=== PATIENT | female | born 1955 | race Caucasian/White ===

== ENCOUNTER → 2017-01-14 | Outpatient (CLI) | payer MEDICARE ==
[2017-01-14 16:28] LABS: Blood Urea Nitrogen 18 mg/dL (7-17); Non-African American GFR(MDRD) >60 (>60 ml/min/1.73 sqM)
== END | disposition home or self-care (01) ==
LOC: LABWHC1 15:51
PROVIDERS: ATTEND Family Medicine
DX: M51.16 Intervertebral disc disorders with radiculopathy, lumbar region (principal)
CPT/HCPCS: 36415; 82565; 84520

== ENCOUNTER → 2017-01-15 | Outpatient (CLI) | payer MEDICARE ==
--- NOTE | 2017-01-15 21:19 | MR ---
EXAMINATION TYPE: MR lumbar spine wo/w con DATE OF EXAM: 01/15/2017 8:05 PM COMPARISON: NONE HISTORY: Severe LBP with pain into right thigh for 3 weeks, hx surgery 7 years ago per patient.. Inte rvertebral discs disc order with radiculopathy per order. TECHNIQUE: Multiplanar, multisequence images of the lumbar spine is performed without and with IV contrast, util izing 10 mL intravenous MultiHance FINDINGS: Sagittal images of the lumbar spine show vertebral body heights and alignment to appear str aightened. There is multilevel disc desiccation mild disc space narrowing above surgical levels at kim mbosacral junction. There is moderate to advanced disc space narrowing L5-S1 level. There is artifact from posterior fusion hardware L5-S1 level noted. Small multilevel posterior disc herniations are se en on sagittal images most prominent at L2-L3 and L4-L5 levels The conus medullaris is normal in posi tion and signal ending at mid L1 vertebral body level. The bone marrow signal intensity is within no rmal limits. No suspicious postcontrast enhancement is seen. Mild multilevel anterior spurring is pre sent. Axial images at the T12-L1 level shows prominence of the exiting nerve root sheaths bilaterally other booth is unremarkable. Axial images at L1-L2 level shows mild broad disc bulge minimally effacing anterior thecal sac, bilat eral neural foramina are patent. Axial images at L2-L3 level shows moderate broad-based posterior disc protrusion effacing anterior th ecal sac and axial image 28 with mild facet degenerative changes and ligamentum flavum hypertrophy ef facing posterior lateral thecal sac. Bilateral neural foramina are patent. Axial images at L3-L4 level show mild broad disc bulge mildly effacing anterior thecal sac. Bilateral neural foramina are patent. Axial images at L4-L5 level show artifact from surgical change. There is mild to moderate broad disc bulge with left paracentral broad-based disc protrusion component effacing anterior thecal sac and ax ial image 15. There is mild right-sided neural foraminal narrowing inferiorly. Left-sided neural fora men is patent. Axial images at L5-S1 level show bilateral laminectomy defects and spinous process resection. Spinal canal is preserved. There is artifact from posterior fusion hardware. Right-sided neural foramina is felt patent. There appears to be encroachment on left-sided neural foramina due to marginal spurring seen best on sagittal image 3. Slightly unusual anterior axis to right kidney is noted.. IMPRESSION: Postsurgical changes lumbosacral junction. There are multilevel degenerative changes in t he lumbar spine as detailed above. No significant finding however is clearly seen to account for anant ent's right-sided radiculopathy type symptoms.
== END | disposition home or self-care (01) ==
LOC: RADMRIMAIN 18:58
PROVIDERS: ATTEND Family Medicine
DX: M47.26 Other spondylosis with radiculopathy, lumbar region (principal); Z98.890 Other specified postprocedural states
CPT/HCPCS: 72158; A9577

== ENCOUNTER → 2017-07-20 | Outpatient (CLI) | payer MEDICARE ==
--- NOTE | 2017-07-20 21:16 | MR ---
EXAMINATION TYPE: MR cervical spine wo con DATE OF EXAM: 07/20/2017 COMPARISON: Prior exam 12/19/2012 HISTORY: Cervical Spondylosis with Radiculopathy, Headaches TECHNIQUE: Multiplanar, multisequence images of the cervical spine were acquired. C2-C3: No evidence for degenerative disc disease. No disc bulge/herniation or protrusion. No Canal stenosis. Foramina are patent bilaterally. C3-C4: No evidence for degenerative disc disease. No disc bulge/herniation or protrusion. No Canal stenosis. Foramina are patent bilaterally. C4-C5: No evidence for degenerative disc disease. No disc bulge/herniation or protrusion. No Canal stenosis. Foramina are patent bilaterally. C5-C6: No evidence for degenerative disc disease. No disc bulge/herniation or protrusion. No Canal stenosis. Foramina are patent bilaterally, some mild foraminal encroachment may be present on the le ft. C6-C7: No evidence for degenerative disc disease. No disc bulge/herniation or protrusion. No Canal stenosis. There may be some mild left-sided greater than right foraminal encroachment may be present as previously reported. C7-T1: No evidence for degenerative disc disease. No disc bulge/herniation or protrusion. No Canal stenosis. Foramina are patent bilaterally. Cervical segments are intact. There is normal alignment. Cervical spinal cord is of normal signal. Craniovertebral junction relationships are within normal limits. Anterior cervical fusion and disce ctomy change again noted at C5-C7. Susceptibility artifact is again noted due to the screws, difficul t to exclude extension of screws into the spinal canal, breach of the posterior cortex of the vertebr al body on the basis of this exam. IMPRESSION: There is not a significant interval change in the appearance of the exam. No significant central sten osis is evident.
== END | disposition home or self-care (01) ==
LOC: RADMRIMAIN 19:01
DX: M47.22 Other spondylosis with radiculopathy, cervical region (principal)
CPT/HCPCS: 72141

== ENCOUNTER → 2018-08-08 | Outpatient (CLI) | payer OTHER, MEDICARE ==
--- NOTE | 2018-08-08 13:55 | ECHOS ---
STRESS ECHOCARDIOGRAM INDICATIONS: Murmur BASELINE HEART RATE: 59 BASELINE BLOOD PRESSURE: 101/80 MAXIMUM HEART RATE: 140 MAXIMUM BLOOD PRESSURE: 146/77 85% MPHR: 134 100% MPHR: 158 METS: 9.1 MAXIMUM STAGE REACHED: 3 TOTAL EXERCISE TIME: 7:30 CLINICAL INFORMATION: Baseline rhythm is a sinus mechanism, rate of 59, normal axis and intervals, poor R- wave progression. Baseline blood pressure 101/80 mmHg. Patient exercised on Silvestre protocol for 7 minutes 30 seconds reaching peak rate of 140 beats per minute which is equal to 89% maximum predicted heart rate. Peak blood pressure 146/77 mmHg. Test was terminated due to fatigue. There was no chest pain. Electrocardiographic monitoring revealed a rate related to right bundle branch block with occasional PVCs. The rate related to bundle branch block resolved in recovery. FINDINGS: Baseline echocardiogram revealed normal function. At peak exercise there was normal wall motion augmentation with no hypokinesis or dyskinesis. CONCLUSION: 1. Average exercise tolerance with occasional premature ventricular contractions and nondiagnostic electrocardiogram stress testing secondary to rate-related right bundle branch block with occasional premature ventricular contractions. 2. Normal stress echocardiogram with no evidence of stress-induced ischemia. MMODL / IJN: [id number] /
== END | disposition home or self-care (01) ==
LOC: RADNMMAIN 09:01
PROVIDERS: ATTEND Family Medicine
DX: I45.10 Unspecified right bundle-branch block (principal)
CPT/HCPCS: 93351

== ENCOUNTER → 2020-01-31 | Outpatient (CLI) | payer OTHER, MEDICARE ==
--- NOTE | 2020-01-31 11:36 | US ---
EXAMINATION TYPE: US carotid duplex BILAT DATE OF EXAM: 01/31/2020 COMPARISON: NONE CLINICAL HISTORY: 64-year-old H53.132 Sudden visual loss, left eye. Left eye vision loss. TECHNIQUE: Carotid duplex ultrasound examination. Indirect Doppler criteria was utilized. FINDINGS: EXAM MEASUREMENTS: RIGHT: Peak Systolic Velocity (PSV) cm/sec ----- Right CCA: 67.7 ----- Right ICA: 99.1 ----- Right ECA: 74.7 ICA/CCA ratio: 1.5 RIGHT: End Diastole cm/sec ----- Right CCA: 26.7 ----- Right ICA: 50.0 ----- Right ECA: 20.6 LEFT: Peak Systolic Velocity (PSV) cm/sec ----- Left CCA: 79.8 ----- Left ICA: 83.1 ----- Left ECA: 109.5 ICA/CCA ratio: 1.0 LEFT: End Diastole cm/sec ----- Left CCA: 28.1 ----- Left ICA: 43.5 ----- Left ECA: 22.8 VERTEBRALS (direction of flow): Right Vertebral: Antegrade Left Vertebral: Antegrade Rhythm: Normal Information Management Officer notes: Plaque visualized in bilateral bulbs. No elevated velocities, significant stenosis or wall thickening. IMPRESSION: Mild to moderate atherosclerotic change at both bifurcations. No hemodynamically significant interna l carotid stenosis on either side. Criteria for Assigning % of Stenosis / Diameter reduction (Estimation based on the indirect measurements of the internal carotid artery velocities (ICA PSV). 1. Normal (no stenosis)=ICA PSV < 125 cm/s: ratio < 2.0: ICA EDV<40 cm/s. 2. Less than 50% stenosis=ICA PSV < 125 cm/s: ratio < 2.0: ICA EDV<40 cm/s. 3. 50 to 69% stenosis=ICA PSV of 125 to 230 cm/s: ration 2.0 ? 4.0: ICA EDV 40-100 cm/s. 4. Greater than 70% stenosis to near occlusion= ICA PSV > 230 cm/s: ratio > 4.0: ICA EDV > 100 cm/s. 5. Near occlusion= ICA PSV velocities may be low or undetectable: variable ratio and ICA EDV. 6. Total occlusion=unable to detect flow.
== END | disposition home or self-care (01) ==
LOC: RADUSWWP 10:51
PROVIDERS: ATTEND Family Medicine
DX: I65.22 Occlusion and stenosis of left carotid artery (principal)
CPT/HCPCS: 93880

== ENCOUNTER → 2020-02-01 | Outpatient (CLI) | payer OTHER, MEDICARE ==
--- NOTE | 2020-02-01 13:34 | MR ---
EXAMINATION TYPE: MR brain wo/w con DATE OF EXAM: 02/01/2020 COMPARISON: NONE HISTORY: Vision loss left eye, APPIAH TECHNIQUE: Multiplanar, multisequence images of the brain and brainstem is performed without and with IV contras t, utilizing 5.5 mL intravenous Gadavist . FINDINGS: Diffusion weighted images demonstrate no evidence of a recent infarct or other diffusion ab normality. There is no worrisome extra-axial fluid collection. Few scattered foci of T2 hyperintens ity is seen throughout the white matter bilaterally. Approximately 15-20 tiny scattered lesions are s een. They are nonspecific in appearance and distribution. The ventricular system and cisternal spaces are normal in size and appearance. The brain volume is age appropriate. Midline structures demonstrate normal morphology. The craniocervical junction appears within normal limits. Post contrast images demonstrate no abnormal enhancement. The dural venous sinuses appear pa tent. The visualized sinuses are clear and the globes are intact. Some patchy fluid left mastoid air cells inferiorly axial image 5. Suprasellar cistern is maintained. IMPRESSION: 1. Mild nonspecific white matter changes may be on basis of altered vascular flow related to product of migraine headaches. 2. Possible mild left-sided mastoiditis versus retained secretions, correlate clinically.
== END | disposition home or self-care (01) ==
LOC: RADMRIMAIN 12:35
PROVIDERS: ATTEND Family Medicine
DX: R90.89 Other abnormal findings on diagnostic imaging of central nervous system (principal)
CPT/HCPCS: 70553; A9585

== ENCOUNTER → 2020-04-18 | Outpatient (CLI) | payer OTHER, MEDICARE ==
--- NOTE | 2020-04-18 10:43 | ECHOF ---
Referral Reason:R06.00 dyspnea, unspecified MEASUREMENTS -------- HEIGHT: 167.6 cm WEIGHT: 57.2 kg BP: RVIDd: 3.2 cm (< 3.3) IVSd: 0.9 cm (0.6 - 1.1) LVIDd: 4.5 cm (3.9 - 5.3) LVPWd: 1.1 cm (0.6 - 1.1) IVSs: 1.4 cm LVIDs: 3.1 cm LVPWs: 1.6 cm LAESV Index (A-L): 22.71 ml/m Ao Diam: 2.5 cm (2.0 - 3.7) AV Cusp: 1.7 cm (1.5 - 2.6) MV EXCURSION: 20.180 mm (> 18.000) MV EF SLOPE: 125 mm/s (70 - 150) EPSS: 0.5 cm MV E Hussein: 0.96 m/s MV DecT: 217 ms MV A Hussein: 0.79 m/s MV E/A Ratio: 1.22 RAP: 5.00 mmHg RVSP: 40.18 mmHg FINDINGS -------- Sinus rhythm with extra systolic beats. This was a technically adequate study. The left ventricular size is normal. Left ventricular wall thickness is normal. Overall left vent ricular systolic function is normal with, an EF between 55 - 60 %. The diastolic filling pattern is normal for the age of the patient 14.85. The right ventricle is mildly enlarged. Normal LA size by volume 22+/-6 ml/m2. The right atrial size is normal. Interatrial and interventricular septum intact. The aortic valve is trileaflet and appears structurally normal. There is no evidence of aortic regu rgitation. There is no evidence of aortic stenosis. Mild mitral regurgitation is present. Mild tricuspid regurgitation present. There is mild pulmonary hypertension. The right ventricular systolic pressure, as measured by Doppler, is 40.18mmHg. There is no pulmonic regurgitation present. The aortic root size is normal. Normal inferior vena cava with normal inspiratory collapse consistent with estimated right atrial pre ssure of 5 mmHg. There is no pericardial effusion. CONCLUSIONS -------- 1. Sinus rhythm with extra systolic beats. 2. This was a technically adequate study. 3. The left ventricular size is normal. 4. Left ventricular wall thickness is normal. 5. Overall left ventricular systolic function is normal with, an EF between 55 - 60 %. 6. The diastolic filling pattern is normal for the age of the patient 14.85 7. The right ventricle is mildly enlarged. 8. Normal LA size by volume 22+/-6 ml/m2. 9. The right atrial size is normal. 10. Interatrial and interventricular septum intact. 11. The aortic valve is trileaflet and appears structurally normal. 12. There is no evidence of aortic regurgitation. 13. There is no evidence of aortic stenosis. 14. Mild mitral regurgitation is present. 15. Mild tricuspid regurgitation present. 16. There is mild pulmonary hypertension. 17. The right ventricular systolic pressure, as measured by Doppler, is 40.18mmHg. 18. There is no pulmonic regurgitation present. 19. The aortic root size is normal. 20. Normal inferior vena cava with normal inspiratory collapse consistent with estimated right atrial pressure of 5 mmHg. 21. There is no pericardial effusion. [employer] SPECIALIST: Tiesha Pizano RDCS
== END | disposition home or self-care (01) ==
LOC: RADECHMAIN 08:31
PROVIDERS: ATTEND Family Medicine
DX: I08.1 Rheumatic disorders of both mitral and tricuspid valves (principal); I27.20 Pulmonary hypertension, unspecified
CPT/HCPCS: 93306

== ENCOUNTER → 2021-01-25 | Outpatient (CLI) | payer OTHER, MEDICARE ==
--- NOTE | 2021-01-25 14:34 | MR ---
EXAMINATION TYPE: MR cervical spine wo/w con DATE OF EXAM: 01/25/2021 COMPARISON: 07/20/2017 HISTORY: Neck pain, headaches, BUE radiculopathy. Hx surgery. CONTRAST: Performed utilizing 5.5 mL intravenous Gadavist gadolinium contrast. TECHNIQUE: Multiplanar multiecho imaging on a 3.0 Ree magnet is performed through the cervical spin e. Susceptibility artifact causes limitation during portions of this exam. Anterior cervical fusion C 5-C7 is evident. FINDINGS: The craniovertebral junction is normal. Vertebral body alignment is normal. Anterior cer vical fusion C5-C7 is evident. Remaining disc spaces appear preserved. No focal disc herniations or significant disc bulges are appreciated. No spinal canal stenosis or violet ral foraminal stenosis present. No suspicious enhancement is evident. IMPRESSIONS: 1. Stable post surgical cervical anterior fusion of C5-C7. No spinal canal stenosis or foraminal sten osis. Exam appears unchanged from 2017.
== END | disposition home or self-care (01) ==
LOC: RADMRIMAIN 08:04
PROVIDERS: ATTEND Family Medicine
DX: Z98.1 Arthrodesis status (principal)
CPT/HCPCS: 72156; A9585

== ENCOUNTER → 2021-02-11 | Outpatient (CLI) | payer OTHER, MEDICARE ==
--- NOTE | 2021-02-13 11:01 | MM ---
Reason for exam: screening (asymptomatic). Last mammogram was performed 4 years and 9 months ago. History: Patient is postmenopausal. Family history of breast cancer in paternal grandmother. Took hormonal contraceptives for 2 months. Took estrogen for 7 years. Physical Findings: A clinical breast exam by your physician is recommended on an annual basis and results should be correlated with mammographic findings. MG 3D Screening Mammo W/Cad Bilateral CC and MLO view(s) were taken. Prior study comparison: May 14, 2016, bilateral MG 3d screening mammo w/cad. August 26, 2011, bilateral digital screening mammo w/CAD. The breast tissue is heterogeneously dense. This may lower the sensitivity of mammography. There is chronic nodularity in the left breast. No significant changes when compared with prior studies. ASSESSMENT: Benign, BI-RAD 2 RECOMMENDATION: Routine screening mammogram of both breasts in 1 year.
== END | disposition home or self-care (01) ==
LOC: RADMAMWWP 16:13
PROVIDERS: ATTEND Family Medicine
DX: Z12.31 Encounter for screening mammogram for malignant neoplasm of breast (principal); Z78.0 Asymptomatic menopausal state; Z80.3 Family history of malignant neoplasm of breast
CPT/HCPCS: 77063; 77067

== ENCOUNTER → 2021-03-14 | Outpatient (CLI) | payer OTHER, MEDICARE ==
--- NOTE | 2021-03-15 04:44 | NM ---
EXAMINATION TYPE: NM bone scan whole body DATE OF EXAM: 03/14/2021 COMPARISON: NONE HISTORY: Back pain Delayed whole-body scanning was performed following the injection of 21.9 mCi Tc 99m MDP. Images acq uired 3.5 hours post injection. FINDINGS: There is 2 levels of focal increased uptake in the posterior mid cervical spine on the right side and consistent with arthritic disease. There is mild increased uptake at L4-5 level bilaterally in the l ower lumbar spine on the posterior images and consistent with facet arthropathy and degenerative disc disease. There is mild increased uptake in several areas of the feet consistent with arthritic disea se. There is slight increased uptake medial aspect of the left knee joint related to arthritic diseas e. There is relatively low position of the right kidney. The remainder of exam is unremarkable. IMPRESSION: Multiple areas of increased uptake are all consistent with ordinary arthritic disease. No evidence of a fracture. No evidence of metastatic disease. IMPRESSION:
== END | disposition home or self-care (01) ==
LOC: RADNMMAIN 10:50
PROVIDERS: ATTEND Family Medicine
DX: M54.9 Dorsalgia, unspecified (principal)
CPT/HCPCS: 78306; A9503

== ENCOUNTER → 2021-08-19 | Outpatient (CLI) | payer BC, MEDICARE ==
[2021-08-19 17:50] LABS: African American GFR (CKD) >90 (>60 ml/min/1.73 sqM); Blood Urea Nitrogen 19 mg/dL (7-17); Non-African American GFR(CKD) 89 (>60 ml/min/1.73 sqM)
--- NOTE | 2021-08-20 09:39 | CT ---
EXAMINATION TYPE: CT abdomen pelvis w con DATE OF EXAM: 08/19/2021 COMPARISON: None HISTORY: abdominal pain and distention CT DLP: 357.2 mGycm Automated exposure control for dose reduction was used. TECHNIQUE: Helical acquisition of images from the lung bases through the pelvis have been completed. CONTRAST: Performed with Oral Contrast and with IV Contrast, patient injected with 100 mL of Isovue 300. FINDINGS: LUNG BASES: Emphysematous changes are present, subpleural nodularity noted on axial image 3 in the ri ght lower lobe, nodule measures approximately 7 mm and shows smooth margins. Some basilar scarring or atelectatic change is present. AORTA: Atherosclerotic changes are present within the aortic iliac distribution LIVER/GB: No significant abnormality is appreciated. PANCREAS: No significant abnormality is seen. SPLEEN: No significant abnormality is seen. ADRENALS: No significant abnormality is seen. KIDNEYS: Right kidney somewhat dysmorphic in shape. The kidneys excrete contrast symmetrically and en nestor bilaterally.. REPRODUCTIVE ORGANS: Not seen BOWEL: No significant abnormality is seen. The appendix is not seen. FREE AIR: No Free Air visible. ASCITES: None visible. PELVIC ADENOPATHY: None visualized. RETROPERITONEAL ADENOPATHY: No Retroperitoneal Adenopathy visible. URINARY BLADDER: No significant abnormality is seen. OSSEOUS STRUCTURES: Postop changes are noted status post posterior fusion at L5-S1. There is some st reak artifact present.. There is some facet arthropathy, degenerative disc change present in the lumb ar spine IMPRESSION: INDETERMINATE PULMONARY NODULE, FOLLOW-UP CT SUGGESTED. THERE ARE EMPHYSEMATOUS CHANGES WITHIN THE BERNARDA NGS. Postop changes.
== END | disposition home or self-care (01) ==
LOC: RADCTMAIN 17:11
PROVIDERS: ATTEND Family Medicine
DX: R10.9 Unspecified abdominal pain (principal); R14.0 Abdominal distension (gaseous)
CPT/HCPCS: 82565; 84520; 74177; 36415; Q9967

== ENCOUNTER → 2022-12-07 | Outpatient (CLI) | payer BC, MEDICARE ==
[2022-12-07 14:38] LABS: African American GFR (CKD) >90 (>60 ml/min/1.73 sqM); Blood Urea Nitrogen 19 mg/dL (7-17); Non-African American GFR(CKD) >90 (>60 ml/min/1.73 sqM)
== END | disposition home or self-care (01) ==
LOC: LAB 13:17
PROVIDERS: ATTEND Physician Assistant
DX: N28.9 Disorder of kidney and ureter, unspecified (principal)
CPT/HCPCS: 82565; 84520

== ENCOUNTER 2022-12-17 12:54 | Emergency (ER) | payer BC, MEDICARE ==
[2022-12-17 13:07] VITALS: BP 139/93; PULSE 74; RESP 18; TEMP 98
== END 2022-12-17 14:00 | disposition left against medical advice (07) ==
LOC: EC 12:54
DX: Z53.21 Procedure and treatment not carried out due to patient leaving prior to being seen by health care provider (principal); Z53.9 Procedure and treatment not carried out, unspecified reason
CPT/HCPCS: 93005; 99499

== ENCOUNTER 2023-02-19 06:30 | Day surgery (SDC) | payer BC, MEDICARE ==
[~2023-02-19 06:30] MED LIST: LACTATED RINGERS 1,000 ML IV SCH; LIDOCAINE 1% (10MG/ML) FOR IV START INTRADERMA PRN
[2023-02-19 07:13] VITALS: RESP 16; TEMP 97.3
[2023-02-19] MEDS ORDERED: PROPOFOL 10 MG/ML 20 ML VIAL IV ONE (07:20)
[2023-02-19] MEDS ORDERED: LIDOCAINE 2% INJ 20 MG/ML (2 ML VIAL) ONE (07:20)
--- NOTE | 2023-02-19 07:47 | P.PCN ---
Date of Procedure: 02/19/23 Procedure(s) Performed: Brief history: Patient is a pleasant 77-year-old white female scheduled for an elective upper endoscopy as well as colonoscopy as a part of evaluation of epigastric pain and screening for colon cancer Procedure performed: Esophagogastroduodenoscopy with biopsy Colonoscopy with snare polypectomy. Preoperative diagnosis: Chronic epigastric pain Screening for colon cancer Anesthesia: MAC Procedure: After informed consent was obtained from the patient was brought into the endoscopy unit and IV sedation was administered by anesthesia under continuous monitoring. Initially upper endoscopy was done. The Olympus GF 160 video endoscope was inserted inserted into the mouth and esophagus intubated without any difficulty and was gradually advanced into the stomach and duodenum and carefully examined. The bulb and second part of the duodenum appeared normal. The scope was then withdrawn into the stomach adequately insufflated with air and upon careful examination the antrum had mild gastritis and biopsies were done from this area. Mucosa of the and body, cardia and fundus appeared normal. The scope was then withdrawn into the esophagus. Small sliding type hiatal hernia noted. The GE junction was located at 40 cm to the incisors. It appeared regular with no erythema erosions or ulcerations. Rest of the esophagus appeared normal. Patient tolerated the procedure well. At this time the patient continued to remain sedation. Initial digital rectal examination was normal. Olympus CF 160 video colonoscope was then inserted into the rectum and gradually advanced to the cecum without any difficulty. Careful examination was performed as the scope was gradually being withdrawn. The prep was excellent. The cecum, appeared normal. In the ascending colon there was a 5 limited polyp removed by snare polyp rectum he. Rest of the ascending colon, transverse colon, appeared normal. In the descending colon there was a 1 cm polyp removed by snare polypectomy. In the sigmoid colon at 25 cm from the anal verge there was a 2 cm polyp removed by snare polypectomy. In the rectum there was a 5 mm polyp removed by snare polypectomy. Rest of the descending colon, sigmoid colon and rectum appeared normal. Retroflexion was performed in the rectum and no lesions were noted. Patient tolerated the procedure well. Impression: 1. Upper endoscopy revealed small hiatal hernia and mild antral gastritis 2. Colonoscopy revealed: 5 mm ascending colon polyp status post polypectomy 1 cm descending colon polyp status post polypectomy 2 cm sigmoid: Polyp status post polypectomy 5 mm rectal polyp status post polypectomy Recommendations: Findings of this examination were discussed with the patient as well as a family. She was advised to follow with the biopsy results.If the biopsies revealed adenoma she can have a repeat colonoscopy in 3 years.
[2023-02-19 08:15] VITALS: BP 122/81; PULSE 63
== END 2023-02-19 08:27 | disposition home or self-care (01) ==
LOC: ORWHC2ENDO 06:30
PROVIDERS: ATTEND Internal Medicine Gastroenterology
DX: Z12.11 Encounter for screening for malignant neoplasm of colon (principal); K29.50 Unspecified chronic gastritis without bleeding; D12.4 Benign neoplasm of descending colon; D12.2 Benign neoplasm of ascending colon; D12.5 Benign neoplasm of sigmoid colon; K21.00 Gastro-esophageal reflux disease with esophagitis, without bleeding; K44.9 Diaphragmatic hernia without obstruction or gangrene; J44.9 Chronic obstructive pulmonary disease, unspecified; F17.200 Nicotine dependence, unspecified, uncomplicated; N20.0 Calculus of kidney; Z86.73 Personal history of transient ischemic attack (TIA), and cerebral infarction without residual deficits; Z79.899 Other long term (current) drug therapy
CPT/HCPCS: 88305; 45385; 43239; J2704; J2001

== ENCOUNTER → 2023-04-09 | Outpatient (CLI) | payer MEDICARE ==
[2023-04-09 16:38] LABS: HCT 43.5 % (37.2-46.3); HGB 13.7 g/dL (12.0-15.0); MCH 28.2 pg (27.0-32.0); MCHC 31.5 g/dL (32.0-37.0); MCV 89.5 fL (80.0-97.0); Mean Platelet Volume 11.1 fL (9.5-12.2); NRBC Per 100 WBC 0 /100 WBCS (0.0-0.0); Platelet Count 297 X 10*3/uL (140-440); RBC 4.86 X 10*6/uL (4.10-5.20); RDW 14.7 % (11.5-14.5); WBC 7.68 X 10*3/uL (4.50-10.00)
[2023-04-09 17:02] LABS: African American GFR (CKD) 76.7 (60.0-200.0); Albumin 4.8 g/dL (3.8-4.9); Albumin/Globulin Ratio 1.85 (1.60-3.17); Anion Gap 14.2 mmol/L (10.00-18.00); BUN/Creat Ratio 23.89 Ratio (12.00-20.00); Blood Urea Nitrogen 21.5 mg/dL (9.0-27.0); Calcium 9.8 mg/dL (8.7-10.3); Carbon Dioxide 27.8 mmol/L (20.0-27.5); Globulin 2.6 g/dL (1.6-3.3); Non-African American GFR(CKD) 66.2 (60.0-200.0); Potassium 4.1 mmol/L (3.5-5.5); T4, Free (Free Thyroxine) 1.14 ng/dL (0.800-1.800); Total Bilirubin 0.6 mg/dL (0.30-1.20); Total Protein 7.4 g/dL (6.2-8.2)
== END | disposition home or self-care (01) ==
LOC: LABWHC1 10:15
PROVIDERS: ATTEND Physician Assistant
DX: G90.09 Other idiopathic peripheral autonomic neuropathy (principal)
CPT/HCPCS: 36415; 80053; 82306; 84207; 84439; 84443; 84481; 85027